=== PATIENT | male | born 1970 | race Caucasian/White ===

== ENCOUNTER 2022-05-03 15:29 | Outpatient (CLI) | payer BC, SELFPAY | END 2022-05-03 15:30 | disposition home or self-care (01) | PROVIDERS: PCP Nurse Practitioner Family; Visit Provider Nurse Practitioner Family | DX: I49.8 Other specified cardiac arrhythmias (principal) | CPT/HCPCS: 93225; 93226 ==

== ENCOUNTER 2022-06-28 12:18 | Outpatient (CLI) | payer BC, SELFPAY ==
[2022-06-28 13:20] LABS: Cholesterol* 229 mg/dL (90-199); HDL Cholesterol* 51 mg/dL (>=40); LDL Cholesterol Calculated 154 mg/dL (<100); Triglycerides* 120 mg/dL (40-149)
== END 2022-06-28 12:19 | disposition home or self-care (01) ==
LOC: NFLDREF 12:18
PROVIDERS: PCP Nurse Practitioner Family; Visit Provider Internal Medicine Cardiovascular Disease
DX: Z00.00 Encounter for general adult medical examination without abnormal findings (principal); E78.5 Hyperlipidemia, unspecified
CPT/HCPCS: 80061

== ENCOUNTER 2024-08-17 19:41 | Emergency (ER) | payer SELFPAY ==
--- OUTSIDE RECORDS SUMMARY | 2024-08-17 19:42 | XMS_ITS | Clinical Summary ---
Author Organization [employer] [facility] Address [place], [place] [address] Care Team Providers Care Lumber Sales Supervisor Name Role Phone Nabor Ambrose MD Primary Care Provider [phone] Allergies Active Allergy Reactions Criticality Noted Date Comments Citalopram Headache 12/12/2010 Sertraline Other - Describe In Comment Field 05/02/2011 Severely delayed ejaculation Medications Phentermine HCl 37.5 mg capsuleIndicatio ns:Unspecified disorder of metabolism,Obesi ty, unspecified Take 1 capsule by mouth once daily before a meal. 30 capsule 0 04/15/2014 Active Active Problems Problem Noted Date Diagnosed Date Mixed hyperlipidemia 06/28/2022 Non-cardiac chest pain 06/28/2022 Unspecified disorder of metabolism 05/16/2011 Obesity, unspecified 12/12/2010 Pure hypercholesterolemia 12/12/2010 Overview (12/03/2011): High HDL Resolved Problems Problem Noted Date Diagnosed Date Resolved Date Anxiety state, unspecified 09/22/2007 0 04/15/2014 Insomnia, unspecified 09/22/20072013 Closed fracture of vertebra 12/28/1999 04/15/2014 ROTATOR CUFF SPRAIN 12/28/1999 04/15/20 14 MUCOCELE, SALIVARY GLAND 11/20/199912/2013 Immunizations Name Administration Dates Next Due Td (Age >=7 Years) 10/09/1991 Family History Medical History Relation Name Comments Good Health Daughter 1 Gunjan Second Good Health Daughter 2 Jael Third Other Father Acromegaly Hypertension Mother Good Health Sister Older Good Health Son Skyler Oldest Relation Name Status Comments Daughter 1 Gunjan Daughter 2 Jael Father Mother Sister Son Skyler Social History Tobacco Use Types Packs/Day Years Used Date Smoking Tobacco: Never Smokeless Tobacco: Never Alcohol Use Standard Drinks/Week Comments Yes 0 (1 standard drink = 0.6 oz pur e alcohol) Rare, no binges Social Connections Answer Date Recorded Frequency of Communication with Friends and Fami ly Not on file 06/28/2022 Sex and Gender Information Value Date Recorded Sex Assigned at Not on file Legal Sex 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 Gender Identity Not on file Sexual Orientation Not on file 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 [employer] Not on file Not on file Not on file Obstetrics History Last Filed Vital Signs Vital Sign [place] Time Taken Comments Blood Pressure 120/86 04/15/2014 11:25 AM CDT Pulse 70 04/15/2014 11:25 AM CDT Temperature 36.5 C (97.7 F) 11/12/2012 12:51 PM CDT Respiratory Rate 12 04/15/2014 11:25 AM CDT Oxygen Saturation - - Inhaled Oxygen Concentration - - Weight 100.7 kg (222 lb) 04/15/2014 11:25 AM CDT Height 170.2 cm (5' 7) 09/26/2011 10:48 AM CHAIR MECHANIC Body Mass Index 34.77 09/26/2011 10:48 AM CHAIR MECHANIC Plan of Treatment Health Maintenance Due Date Last Done Comments Tdap 12/17/1979 Depression screening for age 12+ 1980 HIV for age 15-65 12/17/1983 BMI (ht and wt on same day) for age 18+ 1986 Hepatitis C screening for ag e 18-79 1986 Colonoscopy through age 75 2013 Lipids for age 45-75 02/14/2015 02/14/2010, 02/14/2010 Pneumococcal series for age 50+ (1 of 1 - PCV) 2018 Zoster (shingles) series for age 50+ (1 of 2) 2018 Tetanus booster 05/02/2021 05/02/2011 (Declined), 10/09/1991 COVID-19 vaccine series ( - 2023- season) 2024 Influenza for age 50-64 04/11/2024 Pneumococcal series for age 6-49 Aged Out No longer eligible b ased on patient's age to complete this topic Procedures Procedure Name Priority Date/Time Associated Diagnosis Comments CHOLESTEROL,TOTAL Routine 02/14/2010 8:3 9 AM CDT Screening for lipoid disorders from Last 3 Months or Most Recently Relevant to Health Maintenance Results * (ABNORMAL) CHOLESTEROL,TOTAL (02/14/2010 8:39 AM CDT) CHOLESTEROL,TO HARISH 250(H) 110 - 199 mg/dL [facility] Blood specimen (specimen) BLOOD SPECIMEN / Unknown 02/14/2010 8:39 AM CDT 02/14/2010 8:26 AM CDT us Nabor Ambrose MD CHEMISTRY Final Res ult [facility] [place] [address] [address] from Last 3 Months or Most Recently Relevant to Health Maintenance Insurance [facility] WORKERS COMP [employer] WORKERS COMP WC WORKERS COMP Care Teams Lumber Sales Supervisor Relationship Specialty Start Date End Date Nabor Ambrose MD [address] [place] [address] PCP - General 10/01/07
== END 2024-08-17 19:53 | disposition left against medical advice (07) ==
LOC: ED 19:48
PROVIDERS: PCP Nurse Practitioner Family
DX: Z53.21 Procedure and treatment not carried out due to patient leaving prior to being seen by health care provider (principal)

== ENCOUNTER 2024-08-20 12:04 | Emergency (ER) | payer SELFPAY ==
--- OUTSIDE RECORDS SUMMARY | 2024-08-20 12:05 | XMS_ITS | Clinical Summary ---
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 [employer] Not on file Not on file Not [...] 170.2 cm (5' 7) 09/26/2011 10:48 AM MARKETING STRATEGIST Body Mass Index 34.77 09/26/2011 10:48 AM MARKETING STRATEGIST Plan of Treatment Health Maintenance Due Date [...] CHOLESTEROL,TO HARISH 250(H) 110 - 199 mg/dL [facility] Blood specimen (specimen) BLOOD SPECIMEN / Unknown 02/14/2010 8:39 AM CDT 02/14/2010 8:26 AM CDT us Nabor Ambrose MD CHEMISTRY Final Res ult [facility] [place] ZIP [phone] [address] from Last 3 Months or Most Recently Relevant to Health Maintenance Insurance [facility] WORKERS COMP [employer] WORKERS COMP WC WORKERS COMP Care Teams Quarter Seamer Relationship Specialty Start Date End Date Nabor Ambrose MD [address] [place] [address] PCP - General 10/01/07
[2024-08-20 12:06] VITALS: BP 135/79; PULSE 99; RESP 18; TEMP 36.9; O2SAT 99; BMI 34.2
--- NOTE | 2024-08-20 12:19 | CRLHL7_ITS ---
For Patients: As a result of the Century Cures Act, medical imaging exams and procedure reports are released immediately into your electronic medical record. You may view this report before your referring provider. If you have questions, please contact your health care provider. Indication: L SIDED ABD PAIN- MID TO LOWER Technique: CT abdomen/pelvis with IV contrast, 120 mL Isovue 370 Comparison: None Findings: Lower thorax: There are minimal dependent and basilar atelectatic changes. Abdomen/pelvis: The liver, gallbladder and biliary system, spleen, pancreas, adrenal glands, kidneys, ureters, and bladder are within normal limits in appearance. Minimal circumferential bladder wall thickening, likely secondary to underdistention versus outlet obstruction from mild prostatomegaly. There are a few dystrophic calcifications seen in the prostate. There is no evidence of bowel obstruction or inflammation. The appendix is normal. No free fluid or free air. No abscess. No abdominopelvic lymphadenopathy. Trace calcific atherosclerosis of the aortoiliac system; otherwise, the vasculature is unremarkable. Soft tissue/musculoskeletal: Tiny fat containing umbilical hernia. There are some degenerative changes of the spine with degenerative disc disease at L4-L5 with circumferential disc bulge and bilateral neural foraminal stenosis. Impression: 1. No CT evidence of an acute process involving the abdomen or pelvis. 2. Incidental findings as detailed above. Please note that all CT scans at this facility use dose modulation, iterative reconstruction, and/or weight-based dosing when appropriate to reduce radiation dose to as low as reasonably achievable. Dictated by Dwayne Apodaca MD @ 08/20/2024 1:15:13 PM (Electronically Signed)
--- NOTE | 2024-08-20 12:21 | ED.ABDPAIN ---
HPI - Abdominal Pain General Chief Complaint: Abdominal Pain Stated Complaint: left side pain Time Seen by Provider: 08/20/24 12:08 History of Present Illness HPI narrative: Patient is a 53-year-old gentleman who comes in with 5 weeks of persistent left upper quadrant pain. The pain radiates into the left lower quadrant. He has had no changes urination. No fevers no chills no night sweats no reflux. He has had no diarrhea no blood in his stool or urine. He states the pain is 4/10 but is persistent. He has had no recent travels no sick contacts. He has had no similar symptoms. He did have a colonoscopy at age 48. No significant pathology was noted. Related Data Home Medications ?Medication ?Instructions ?Recorded ?Confirmed No Known Home Medications 08/20/24 08/20/24 Allergies Allergy/AdvReac Type Severity Reaction Status Date / Time No Known Allergies Allergy Unknown Verified 08/20/24 12:57 Review of Systems Status of ROS Reports: 10 or more systems reviewed and unremarkable except as noted in History and below PFSH PFSH Family History Other Acromegaly Social History Smoking Status: Never smoker Do you use any of these nicotine containing products: None How often do you have a drink containing alcohol: never AUDIT-C Alcohol total score: 0 Non-prescribed substance use: denies use Exam Narrative: Exam Narrative: EXAM GENERAL: Patient appears comfortable and well. EYES: No scleral icterus. ENT: Tympanic membranes and oropharynx normal. THYROID: no thyroid nodules or thyromegaly. LYMPH: No supraclavicular or cervical lymphadenopathy. SKIN: Visible skin seen during exam normal or with benign process only. EXT: No dependent lower extremity pedal edema. HEART: Regular rate and rhythm with no murmurs, rubs, or gallops. LUNGS: Clear to auscultation bilaterally with no crackles or wheezes. ABD: Soft, non tender, non distended. PSYCH: Good eye contact, speech is not pressured. Const: Vital Signs, click to edit/add: Vital Signs - 24 hr 08/20/24 12:06 Temperature 98.5 F Pulse Rate [Pulse Oximeter] 99 Respiratory Rate 18 Blood Pressure [Ri ght Upper Arm] 135/79 Pulse Oximetry 99 Oxygen Delivery Me thod Room Air Course Course ED Course: Patient seen and examined. CT of the abdomen pelvis ordered. IV placed for CT scan. CBC CMP lipase ordered as well as UA. Vital Signs Vital signs: Initial Vital Signs Temperature 98.5 F 08/20/24 12:06 Temperature Source Temporal Artery Scan 08/20/24 12:06 Pulse Rate 99 08/20/24 12:06 Respiratory Rate 18 08/20/24 12:06 Blood Pressure 135/79 08/20/24 12:06 Blood Pressure Mean 97 08/20/24 12:06 Blood Pressure Position Sitting 08/20/24 12:06 Pulse Oximetry 99 08/20/24 12:06 Oxygen Delivery Method Room Air 08/20/24 12:06 Vital Signs Temperature 98.5 F 08/20/24 12:06 Pulse Rate 99 08/20/24 12:06 Respiratory Rate 18 08/20/24 12:06 Blood Pressure 135/79 08/20/24 12:06 Pulse Oximetry 99 08/20/24 12:06 Oxygen Delivery Method Room Air 08/20/24 12:06 Temperature 98.5 F 08/20/24 12:06 Pulse Rate 99 08/20/24 12:06 Respiratory Rate 18 08/20/24 12:06 Blood Pressure 135/79 08/20/24 12:06 Pulse Oximetry 99 08/20/24 12:06 Oxygen Delivery Method Room Air 08/20/24 12:06 MDM - Abdominal Pain MDM Narrative Medical decision making narrative: Patient is a 53-year-old gentleman who presents with left-sided abdominal pain. Workup is unremarkable including UA CBC electrolytes lipase. CT of the abdomen pelvis is normal with exception of very small umbilical hernia which does not appear to be symptomatic at this time. I did offer reassurance at this time. Differential diagnosis would include but not limited to diverticulitis appendicitis reflux GERD dyspepsia small-bowel obstruction is. Will treated with omeprazole [id number] 20 mg daily and have him follow-up with his primary physician continuing symptomatic treatment. Lab Data Labs: Lab Results 08/20/24 Range/Units 12:42 WBC 4.51 (4.50-11.00) K/uL RBC 4.21 L (4.30-5.90) m/uL Hgb 13.5 (13.5-17.5) gm/dL Hct 39.5 (37.0-53.0) % MCV 94 (80-100) fL MCH 32 (26-34) pg MCHC 34 (32-36) gm/dL RDW Coeff of Pasha 12.2 (11.5-15.5) % Plt Count 148 (140-440) K/uL Neut % (Auto) 67.2 (42.0-72.0) % Lymph % (Auto) 15.7 L (20-44) % Mchenry % (Auto) 15.1 H (0.0-11.0) % Eos % (Auto) 0.9 (0.0-7.0) % Baso % (Auto) 0.2 (0.0-3.0) % Neut # (Auto) 3.03 (1.7-7.0) K/uL Lymph # (Auto) 0.70 L (0.90-2.90) K/uL Mchenry # (Auto) 0.70 (0.00-0.90) K/UL Eos # (Auto) 0.04 (0.00-0.50) K/uL Baso # (Auto) 0.01 (0.00-0.30) K/uL Abs Immat Gran (auto) 0.04 (0.00-0.30) K/uL Imm/Tot Granulo (auto) 0.9 % Sodium 137 (135-149) mmol/L Potassium 3.7 (3.6-5.1) mmol/L Chloride 103 (96-114) mmol/L Carbon Dioxide 26 (20-32) mmol/L Anion Gap 8 (7-15) mEq/L BUN 16 (7-30) mg/dL Creatinine 1.0 (0.5-1.5) mg/dL Estimated Creat Clear 80.75 Estimated GFR 89 ml/min Glucose 98 (60-115) mg/dL Calcium 9.2 (8.4-10.6) mg/dL Total Bilirubin 0.8 (0.1-1.5) mg/dL AST 27 (12-35) U/L ALT 27 (4-50) U/L Alkaline Phosphatase 41 (40-150) U/L Total Protein 6.7 (6.0-8.3) g/dL Albumin 4.5 (3.3-5.0) g/dL Lipase 191 (23-300) U/L Urine Color Yellow (Yellow) Urine Appearance Slightly Cloudy A (Clear) Urine pH 7.5 (5.0-8.5) Ur Specific [place] 1.020 (1.000-1.030) Urine Protein Negative (Negative) Urine Glucose (UA) Negative (Negative) Urine Ketones Negative (Negative) Urine Blood Negative (Negative) Urine Nitrite Negative (Negative) Urine Bilirubin Negative (Negative) Urine Urobilinogen 0.2 (0.2-1.0) Ur Leukocyte Esterase Negative (Negative) Urine RBC 0-2 (0-2) Urine WBC 0-2 (0-5) Ur Squamous Epith Cells None (None-Few) Amorphous Sediment Moderate A (None) Urine Bacteria Few A (None) Discharge Plan Discharge Clinical Impression: Abdominal pain Patient Disposition: Home, Self-Care Condition: Stable Instructions: Abdominal Pain (ED) Additional Instructions: Prilosec OTC 20 mg 1/2 hour before breakfast for 14 days. Symptomatic treatment Follow-up with your doctor as needed Activity Level: No Restrictions Discharge Diet: Regular Prescriptions: No Action No Known Home Medications Follow Up/Referrals: Verónica Sarkar, CARPET TECHNICIAN [Primary Care Provider] - Stand Alone Forms: [employer] ([employer])th Info Instructions
[2024-08-20 12:49] LABS: Basophils Absolute Auto 0.01 K/uL (0.00-0.30); Basophils Percent Auto 0.2 % (0.0-3.0); Eosinophils Absolute Auto 0.04 K/uL (0.00-0.50); Eosinophils Percent Auto 0.9 % (0.0-7.0); Hematocrit 39.5 % (37.0-53.0); Hemoglobin* 13.5 gm/dL (13.5-17.5); Immature Granulocytes Abs Auto 0.04 K/uL (0.00-0.30); Immature Granulocytes Pct Auto 0.9 %; Lymphocytes Percent Auto 15.7 % (20-44); Mean Corpuscular HGB Conc 34 gm/dL (32-36); Mean Corpuscular Hemoglobin 32 pg (26-34); Mean Corpuscular Volume 94 fL (80-100); Monocytes Percent Auto 15.1 % (0.0-11.0); Neutrophils Absolute Auto 3.03 K/uL (1.7-7.0); Neutrophils Percent Auto 67.2 % (42.0-72.0); Platelet Count* 148 K/uL (140-440); RDW Coefficient of Variation % 12.2 % (11.5-15.5); Red Blood Count 4.21 m/uL (4.30-5.90); White Blood Count* 4.51 K/uL (4.50-11.00)
[2024-08-20 12:50] LABS: Appearance Urine Slightly Cloudy (Clear); Bilirubin Urine Negative (Negative); Blood Urine Negative (Negative); Color Urine Yellow (Yellow); Glucose Urine Negative (Negative); Ketones Urine Negative (Negative); Leukocyte Esterase Urine Negative (Negative); Nitrite Urine Negative (Negative); Protein Urine Negative (Negative); Urobilinogen Urine 0.2 (0.2-1.0); pH Urine 7.5 (5.0-8.5)
[2024-08-20 13:02] LABS: Slide Review Reflex No
[2024-08-20 13:03] LABS: Amorphous Sediment Urine Moderate; Bacteria Urine Few; RBC Urine 0-2 (0-2); WBC Urine 0-2 (0-5)
[2024-08-20 13:07] LABS: Albumin* 4.5 g/dL (3.3-5.0); Chloride* 103 mmol/L (96-114); Sodium* 137 mmol/L (135-149)
[2024-08-20 13:08] LABS: Potassium* 3.7 mmol/L (3.6-5.1)
[2024-08-20 13:10] LABS: Alanine Aminotransferase* 27 U/L (4-50); Alkaline Phosphatase* 41 U/L (40-150); Anion Gap 8 mEq/L (7-15); Aspartate Amino Transferase* 27 U/L (12-35); Bilirubin Total* 0.8 mg/dL (0.1-1.5); Blood Urea Nitrogen* 16 mg/dL (7-30); Carbon Dioxide* 26 mmol/L (20-32); Est. Creatinine Clearance* 80.75; Estimated Glomerular Filt Rate 89 ml/min; Glucose* 98 mg/dL (60-115); Lipase* 191 U/L (23-300); Total Protein* 6.7 g/dL (6.0-8.3)
[2024-08-20 13:11] LABS: Calcium* 9.2 mg/dL (8.4-10.6)
== END 2024-08-20 13:40 | disposition home or self-care (01) ==
PROVIDERS: Emergency Provider Internal Medicine; PCP Nurse Practitioner Family
DX: R10.9 Unspecified abdominal pain (principal)
CPT/HCPCS: 36415; 74177; 80053; 81001; 81003; 83690; 85025; 87086; 99283; 99284; 99285; Q9967